=== PATIENT | male | born 1995 | race Caucasian/White ===

== ENCOUNTER 2019-10-13 10:15 | Inpatient (IN) | payer OTHER ==
[~2019-10-13] VITALS: Ht 167.6 cm; Wt 70.5 kg
[2019-10-13 11:21] LABS: BASOPHILS % (AUTO) 0.7 % (0.0-2.0); EOSINOPHILS % (AUTO) 0.3 % (1.0-6.0); HEMATOCRIT 45.4 % (41-53); HEMOGLOBIN 15.4 g/dL (13.5-17.5); LYMPHOCYTES # (AUTO) 2.4 K/uL (1.0-4.8); LYMPHOCYTES % (AUTO) 29.9 % (22.0-44.0); MEAN CORPUSCULAR HEMOGLOBIN 30.2 pg (26.0-34.0); MEAN CORPUSCULAR VOLUME 89 fL (80-100); MONOCYTES # (AUTO) 0.4 K/uL (0.1-1.0); MONOCYTES % (AUTO) 5.3 % (2.0-9.0); NEUTROPHILS # (AUTO) 5.1 K/uL (1.8-7.7); NEUTROPHILS % (AUTO) 63.8 % (40.0-70.0); PLATELET COUNT (AUTO) 364 K/uL (150-450)
[2019-10-13 11:30] LABS: ANION GAP 9 mmol/L (8-16); CALCIUM, TOTAL 9.5 mg/dL (8.8-10.5); CARBON DIOXIDE 28 mmol/L (22-29); CHLORIDE 104 mmol/L (98-107); CREATININE 1.01 mg/dL (0.60-1.30); GLOMERULAR FILTR. RATE CALC > 60 mL/min (>60); GLUCOSE,RANDOM 99 mg/dL (70-110); POTASSIUM 4.1 mmol/L (3.5-5.1); SODIUM SERUM 141 mmol/L (136-145); UREA NITROGEN, BLOOD 9 mg/dL (7-18)
[2019-10-13 11:37] LABS: ALANINE AMINOTRANSFERASE 61 U/L (12-78); ALBUMIN 4.1 g/dL (3.4-5.0); ALKALINE PHOSPHATASE 93 U/L (46-116); ASPARTATE AMINOTRANSFERASE 31 U/L (15-37); BILIRUBIN,TOTAL 0.4 mg/dL (0.1-1.0)
[2019-10-13 11:51] LABS: APPEARANCE,URINE CLEAR (CLEAR); BILIRUBIN,URINE NEGATIVE (NEGATIVE); GLUCOSE, URINE (UA) NEGATIVE (NEGATIVE); KETONES,URINE NEGATIVE (NEGATIVE); LEUKOCYTE ESTERASE ,URINE NEGATIVE (NEGATIVE); NITRATE,URINE NEGATIVE (NEGATIVE); OCCULT BLOOD,URINE NEGATIVE (NEGATIVE); PROTEIN,URINE NEGATIVE (NEGATIVE)
[2019-10-13 11:59] LABS: AMPHET/METH SCREEN,URINE NEGATIVE (NEGATIVE); BARBITURATE SCREEN, URINE NEGATIVE (NEGATIVE); BENZODIAZEPINES SCREEN,URINE NEGATIVE (NEGATIVE); CANNABINOID SCREEN,URINE NEGATIVE (NEGATIVE); COCAINE SCREEN,URINE NEGATIVE (NEGATIVE); METHADONE SCREEN, URINE NEGATIVE (NEGATIVE); OPIATE SCREEN,URINE NEGATIVE (NEGATIVE)
[2019-10-13 12:02] LABS: PHENCYCLIDINE SCREEN,URINE NEGATIVE (NEGATIVE)
[2019-10-13] MEDS ORDERED: ONDANSETRON HCL 4 MG/2 ML VIAL IVP PRN ×2 (12:45→13:30)
[2019-10-13] MEDS ORDERED: ACETAMINOPHEN 325 MG TABLET PO PRN ×2 (12:45→13:30)
[2019-10-13] MEDS ORDERED: 0.9% SODIUM CHLORIDE 10 ML SYRINGE IVP PRN ×2 (12:45→13:30)
[2019-10-13] MEDS: PANTOPRAZOLE SODIUM 40 MG DR TABLET PO SCH (13:30)
[2019-10-13] MEDS ORDERED: IPRATROPIUM BROMIDE 0.5 MG/2.5 ML NEB SOLUTION NEB PRN (13:30)
[2019-10-13] MEDS ORDERED: BISACODYL 10 MG RECTAL RECTAL SUPPOSITORY PR PRN (13:30)
[2019-10-13] MEDS ORDERED: MAGNESIUM HYDROXIDE SUSPENSION 30 ML UDCUP PO PRN (13:30)
[2019-10-13] MEDS ORDERED: ALBUTEROL SULFATE 2.5 MG/0.5 ML NEB SOLUTION NEB PRN (13:30)
[2019-10-13 14:37] VITALS: BP 110/63
[2019-10-13 19:50] VITALS: BP 109/58
[2019-10-13] MEDS ORDERED: INFLUENZA VIRUS VACCINE QVS 2019-20 (3YR+)/PF 60 MCG/0.5 ML SYRINGE IM ONE (20:00)
[2019-10-13 23:31] VITALS: BP 117/65
[2019-10-14 05:35] VITALS: BP 113/64
[2019-10-14 07:30] VITALS: BP 111/58
[2019-10-14] MEDS: PANTOPRAZOLE SODIUM 40 MG DR TABLET PO SCH (09:15)
[2019-10-14] MEDS: SERTRALINE HCL 50 MG TABLET PO SCH (13:51)
[2019-10-14 20:00] VITALS: BP 113/78
[2019-10-14] MEDS: RisperiDONE 1 MG TABLET PO SCH (21:00)
[2019-10-14 23:28] VITALS: BP 122/52
[2019-10-15 05:35] VITALS: BP 119/65
[2019-10-15] MEDS: SERTRALINE HCL 50 MG TABLET PO SCH (08:33)
[2019-10-15] MEDS: PANTOPRAZOLE SODIUM 40 MG DR TABLET PO SCH (08:33)
[2019-10-15 09:59] VITALS: BP 102/59
[2019-10-15 11:05] VITALS: BP 116/70
[2019-10-15 15:05] VITALS: BP 119/67
[2019-10-15 20:06] VITALS: BP 119/68
[2019-10-15] MEDS: RisperiDONE 1 MG TABLET PO SCH (20:36)
[2019-10-15 23:34] VITALS: BP 95/65
[2019-10-16 04:53] VITALS: BP 112/59
[2019-10-16 07:31] VITALS: BP 113/68
[2019-10-16] MEDS: PANTOPRAZOLE SODIUM 40 MG DR TABLET PO SCH (07:54)
[2019-10-16] MEDS: SERTRALINE HCL 50 MG TABLET PO SCH (07:54)
[2019-10-16 15:59] VITALS: BP 108/60
[2019-10-16 20:38] VITALS: BP 118/61
[2019-10-16] MEDS: RisperiDONE 1 MG TABLET PO SCH (21:51)
[2019-10-17 00:33] VITALS: BP 115/74
[2019-10-17 04:00] VITALS: BP 113/62
[2019-10-17 08:00] VITALS: BP 108/55
[2019-10-17] MEDS: SERTRALINE HCL 50 MG TABLET PO SCH (08:49)
[2019-10-17] MEDS: PANTOPRAZOLE SODIUM 40 MG DR TABLET PO SCH (08:49)
[2019-10-17 11:43] VITALS: BP 109/56
[2019-10-17 20:10] VITALS: BP 121/74
[2019-10-17] MEDS: RisperiDONE 2 MG TABLET PO SCH (20:14)
[2019-10-18 04:50] VITALS: BP 107/58
[2019-10-18 07:46] VITALS: BP 122/58
[2019-10-18] MEDS: PANTOPRAZOLE SODIUM 40 MG DR TABLET PO SCH (08:11)
[2019-10-18] MEDS: SERTRALINE HCL 50 MG TABLET PO SCH (08:11)
[2019-10-18 15:48] VITALS: BP 123/73
[2019-10-18 19:42] VITALS: BP 109/59
[2019-10-18] MEDS: RisperiDONE 2 MG TABLET PO SCH (20:05)
[2019-10-18 23:55] VITALS: BP 112/60
[2019-10-19 05:17] VITALS: BP 97/55
[2019-10-19] MEDS: SERTRALINE HCL 50 MG TABLET PO SCH (07:57)
[2019-10-19] MEDS: PANTOPRAZOLE SODIUM 40 MG DR TABLET PO SCH (07:58)
[2019-10-19 08:12] VITALS: BP 110/66
[2019-10-19 16:05] VITALS: BP 113/75
[2019-10-19 19:35] VITALS: BP 106/58
[2019-10-19] MEDS: RisperiDONE 2 MG TABLET PO SCH (20:27)
[2019-10-20 05:18] VITALS: BP 100/48
[2019-10-20] MEDS: SERTRALINE HCL 50 MG TABLET PO SCH ×2 (09:00→13:06)
[2019-10-20] MEDS: PANTOPRAZOLE SODIUM 40 MG DR TABLET PO SCH (09:00)
[2019-10-20 09:28] VITALS: BP 136/78
[2019-10-20] MEDS ORDERED: RISP2 PO (13:22)
[2019-10-20] MEDS ORDERED: SERT50TA12 PO (13:23)
== END 2019-10-20 15:40 | DRG 914 ==
LOC: EMS 10:21 → 6S 13:45
PROVIDERS: ADMIT Internal Medicine; ATTEND Internal Medicine
DX: S09.8XXA Other specified injuries of head, initial encounter (principal); F15.129 Other stimulant abuse with intoxication, unspecified; F29 Unspecified psychosis not due to a substance or known physiological condition; F17.210 Nicotine dependence, cigarettes, uncomplicated; F11.10 Opioid abuse, uncomplicated; W22.01XA Walked into wall, initial encounter; Y93.89 Activity, other specified; Z23 Encounter for immunization; Y92.89 Other specified places as the place of occurrence of the external cause; Y99.8 Other external cause status
CPT/HCPCS: 90686; G0480